=== PATIENT | female | born 1985 | race African-American/Black ===

== ENCOUNTER 2018-07-03 03:10 | Emergency (ER) | payer MEDICAID ==
[~2018-07-03] VITALS: Ht 170.2 cm; Wt 68.0 kg
[2018-07-03] MEDS: ONDANSETRON HCL 4MG/2ML INJ IV STA ×2 (04:26→04:32)
[2018-07-03] MEDS: SODIUM CHLORIDE 0.9% 1,000 ML IV ONE ×2 (04:26→04:32)
[2018-07-03 04:40] LABS: BASOPHILS % 1.2 % (0.0-2.0); HEMATOCRIT. 36.8 % (36.0-48.0); LYMPHOCYTES % 38.4 % (20.0-50.0); MEAN CORPUSCULAR HEMOGLOBIN 29.2 pg (28.0-32.0); MEAN CORPUSCULAR VOLUME 89.7 fL (81.0-99.0); MEAN PLATELET VOLUME 8.4 fl (7.4-10.4); MONOCYTES % 10.2 % (2.0-8.0); NEUTROPHILS % 48.2 % (40.0-76.0); PLATELET 240 x1000/uL (130-400)
[2018-07-03 04:47] LABS: CHLORIDE 106 mEq/L (98-107); INR 1.1; PROTHROMBIN TIME 10.6 sec (9.1-11.1)
[2018-07-03 04:51] LABS: ETHANOL BLOOD < 10 mg/dL; HCG SCREEN NEGATIVE
[2018-07-03 07:34] LABS: CLARITY URINE TURBID (CLEAR); COLOR URINE YELLOW (YELLOW); KETONES URINE NEGATIVE (NEGATIVE); LEUKOCYTE ESTERASE URINE 3+ (NEGATIVE); NITRITE URINE NEGATIVE (NEGATIVE); OCCULT BLOOD URINE TRACE (NEGATIVE); PH URINE 5.5 (4.5-8.0); PROTEIN URINE TRACE (NEGATIVE); SPECIFIC GRAVITY URINE 1.024 (1.005-1.030)
[2018-07-03 07:57] VITALS: BP 104/52
[2018-07-03 08:06] LABS: *AMPHETAMINES SCREEN URINE NEGATIVE (NEGATIVE); *BARBITURATES SCREEN URINE NEGATIVE (NEGATIVE); *BENZODIAZEPINES SCREEN URINE NEGATIVE (NEGATIVE); *COCAINE SCREEN URINE NEGATIVE (NEGATIVE)
[2018-07-03 08:07] LABS: METHADONE URINE SCREEN NEGATIVE (NEGATIVE)
[2018-07-03 08:08] LABS: CANNABINOID URINE SCREEN NEGATIVE (NEGATIVE); OPIATES URINE SCREEN NEGATIVE (NEGATIVE); PHENCYCLIDINE URINE SCREEN NEGATIVE (NEGATIVE)
== END 2018-07-03 08:25 | disposition home or self-care (01) ==
LOC: ER 03:10
DX: R53.83 Other fatigue (principal); Z04.8 Encounter for examination and observation for other specified reasons; Z59.0 Homelessness
CPT/HCPCS: 36415; 80053; 80305; 81003; 83690; 84703; 85025; 85610; 93005; 99285; G0482; J7030; J2405